=== PATIENT | female | born 1980 | race Hispanic/Latino ===

== ENCOUNTER 2021-11-27 19:44 | Inpatient (IN) | payer OTHER ==
[2021-11-27 20:17] LABS: Hemoglobin 14.6 g/dL (12.0-16.0); Mean Corpuscular HGB CONC 34.6 g/dL (32.0-36.0); Mean Corpuscular Hemoglobin 28.2 pg (27.0-31.0); Mean Corpuscular Volume 81.5 fL (78.0-98.0); Platelet Count 273 thou/uL (130-400); Red Blood Cell (RBC) Count 5.19 mill/uL (4.20-5.40); White Blood Cell (WBC) Count 14.9 thou/uL (4.8-10.8)
[2021-11-27] MEDS ORDERED: Vancomycin 1 GM/200 ML BAG ONE (20:22)
[2021-11-27] MEDS ORDERED: Ibuprofen 200 MG TAB ONE (20:22)
[2021-11-27] MEDS ORDERED: Cefepime 2 GM VIAL ONE (20:22)
[2021-11-27 20:41] LABS: Band 20 % (5-11); Eosinophils 1 % (0-10); Lymphocytes 2 % (21-51); MDiff Complete? YES; Neutrophil 73 % (42-75); Platelet Morphology Comment Appears Adequate; Polychromasia SLIGHT = 2-3 cells (100X) (0-2/hpf); Reactive Lymphocytes 4 % (0-10); Target Cells SLIGHT = 2-5 cells (100X) (0-1/hpf)
[2021-11-27 20:47] LABS: ALT (SGPT) 13 U/L (8-55); AST (SGOT) 27 U/L (5-34); Albumin 4.5 g/dL (3.5-5.0); Alkaline Phosphatase 84 U/L (40-110); Anion Gap 16 mmol/L (10-20); BUN (Urea Nitrogen) 9 mg/dL (7.0-18.7); Bilirubin, Total 0.8 mg/dL (0.2-1.2); Calc. Creatinine Clearance 0 mL/min (70-130); Calcium 9.4 mg/dL (7.8-10.44); Carbon Dioxide 25 mmol/L (22-29); Chloride 101 mmol/L (98-107); Estimated GFR 118; Globulin 3.8 g/dL (2.4-3.5); Glucose 145 mg/dL (70-105); Potassium 4.6 mmol/L (3.5-5.1); Protein, Total 8.3 g/dL (6.0-8.3); Sodium 137 mmol/L (136-145)
[2021-11-27 22:12] LABS: Bacteria/HPF 4+ HPF (None Seen); Bilirubin Negative (Negative); Blood, Urine Negative (Negative); Clarity Turbid (Clear); Glucose, Urine (Dipstick) Normal (Negative); Ketone, Urine Trace mg/dL (Negative); Leukocyte 500 Leu/uL (Negative); Nitrite 1+ (Negative); Protein, Urine (Dipstick) Negative (Neg-Trace); RBC/HPF 0-3 HPF (0-3); Specific Gravity, Urine 1.006 (1.002-1.036); Squamous Epithelial None Seen HPF (0-3); Urobilinogen Normal mg/dL (Less than 2)
[2021-11-27 22:58] LABS: SARS-CoV-2 NAA Rapid Test DETECTED (NotDetected)
[2021-11-27] MEDS: Lactated Ringer's 1,000 ML IV SCH (23:39)
[2021-11-27] MEDS ORDERED: Melatonin 3 MG TAB PO PRN (23:59)
[2021-11-28] MEDS: Ibuprofen 200 MG TAB PO SCH ×3 (00:39→09:32)
[2021-11-28] MEDS: Acetaminophen 325 MG TAB PO SCH ×3 (00:39→08:59)
[2021-11-28 02:00] VITALS: BMI 16.5
[2021-11-28 05:04] LABS: Anion Gap 10 mmol/L (10-20); BUN (Urea Nitrogen) 9 mg/dL (7.0-18.7); Calc. Creatinine Clearance 89 mL/min (70-130); Calcium 7.9 mg/dL (7.8-10.44); Carbon Dioxide 23 mmol/L (22-29); Chloride 103 mmol/L (98-107); Estimated GFR 118; Glucose 227 mg/dL (70-105); Potassium 2.6 mmol/L (3.5-5.1); Sodium 133 mmol/L (136-145)
[2021-11-28 05:21] LABS: Band 29 % (5-11); Hemoglobin 11.7 g/dL (12.0-16.0); Lymphocytes 3 % (21-51); MDiff Complete? YES; Mean Corpuscular HGB CONC 34.6 g/dL (32.0-36.0); Mean Corpuscular Hemoglobin 28.3 pg (27.0-31.0); Mean Corpuscular Volume 81.7 fL (78.0-98.0); Mean Platelet Volume 8.3 fL (7.4-10.4); Metamyelocyte 6 % (0-0); Monocytes 1 % (0-10); Neutrophil 61 % (42-75); Platelet Count 192 thou/uL (130-400); Platelet Morphology Comment Appears Adequate; RBC Morphology Normal; Red Blood Cell (RBC) Count 4.15 mill/uL (4.20-5.40); White Blood Cell (WBC) Count 23.1 thou/uL (4.8-10.8)
[2021-11-28] MEDS ORDERED: Potassium Chloride 20 MEQ TAB PO SCH ×2 (05:45→06:00)
[2021-11-28] MEDS ORDERED: Potassium Chloride 20 MEQ in Premix Bag 1 BAG IVPB SCH (06:00)
[2021-11-28 07:56] LABS: Anion Gap 15 mmol/L (10-20); BUN (Urea Nitrogen) 8 mg/dL (7.0-18.7); Calc. Creatinine Clearance 87 mL/min (70-130); Calcium 8.2 mg/dL (7.8-10.44); Carbon Dioxide 19 mmol/L (22-29); Chloride 101 mmol/L (98-107); Estimated GFR 118; Glucose 189 mg/dL (70-105); Magnesium 1.3 mg/dL (1.6-2.6); Potassium 3.6 mmol/L (3.5-5.1); Sodium 131 mmol/L (136-145)
[2021-11-28] MEDS ORDERED: Cefepime 2 GM in Sodium Chloride 0.9% 100 ML IVPB SCH (08:00)
[2021-11-28] MEDS ORDERED: Magnesium 2 GM/50 ML(in water) 2 GM in Premix Bag 1 BAG IVPB SCH (08:30)
[2021-11-28] MEDS: Enoxaparin Sodium 40 MG/0.4 ML SYRINGE SC SCH (08:59)
[2021-11-28] MEDS: Multivit, Therapeutic 1 TAB PO SCH (09:00)
[2021-11-28] MEDS: Famotidine 20 MG TAB PO SCH ×2 (09:01→20:23)
[2021-11-28] MEDS: Lactated Ringer's 1,000 ML IV SCH ×2 (09:35→18:02)
[2021-11-28 09:48] LABS: Hemoglobin A1c 4.7 % (4.0-6.0)
[2021-11-28] MEDS ORDERED: Acetaminophen 325 MG TAB PO PRN (13:00)
[2021-11-28] MEDS ORDERED: Ibuprofen 200 MG TAB PO PRN (14:00)
[2021-11-28 15:23] LABS: Free T4 (Free Thyroxine) 1.23 ng/dL (0.70-1.48)
[2021-11-28] MEDS: Cefepime 2 GM in Sodium Chloride 0.9% 100 ML IVPB SCH (20:23)
[2021-11-29] MEDS: Lactated Ringer's 1,000 ML IV SCH (04:05)
[2021-11-29 05:23] LABS: Anion Gap 10 mmol/L (10-20); BUN (Urea Nitrogen) 12 mg/dL (7.0-18.7); Calc. Creatinine Clearance 81 mL/min (70-130); Calcium 8.5 mg/dL (7.8-10.44); Carbon Dioxide 23 mmol/L (22-29); Chloride 109 mmol/L (98-107); Estimated GFR 116; Glucose 96 mg/dL (70-105); Potassium 4.2 mmol/L (3.5-5.1); Sodium 138 mmol/L (136-145)
[2021-11-29 05:50] LABS: Band 35 % (5-11); Hemoglobin 11.6 g/dL (12.0-16.0); Lymphocytes 4 % (21-51); MDiff Complete? YES; Mean Corpuscular HGB CONC 34.9 g/dL (32.0-36.0); Mean Corpuscular Volume 83.2 fL (78.0-98.0); Mean Platelet Volume 8.6 fL (7.4-10.4); Metamyelocyte 3 % (0-0); Monocytes 2 % (0-10); Neutrophil 56 % (42-75); Platelet Count 179 thou/uL (130-400); Platelet Morphology Comment Appears Adequate; RBC Distribution Width 13.3 % (11.5-14.5); Toxic Granulation SLIGHT; White Blood Cell (WBC) Count 29.6 thou/uL (4.8-10.8)
[2021-11-29 08:10] LABS: Magnesium 2.1 mg/dL (1.6-2.6)
[2021-11-29] MEDS: Multivit, Therapeutic 1 TAB PO SCH (09:11)
[2021-11-29] MEDS: Cefepime 2 GM in Sodium Chloride 0.9% 100 ML IVPB SCH ×2 (09:11→21:19)
[2021-11-29] MEDS: Famotidine 20 MG TAB PO SCH ×2 (09:11→21:19)
[2021-11-29] MEDS: Enoxaparin Sodium 40 MG/0.4 ML SYRINGE SC SCH (09:11)
[2021-11-29] MEDS ORDERED: Docusate 100 MG CAP PO PRN (12:31)
[2021-11-29] MEDS ORDERED: Polyethylene Glycol 3350 17 GM Packet PO PRN (12:31)
[2021-11-29] MEDS ORDERED: Cefepime 2 GM in Sodium Chloride 0.9% 100 ML IVPB SCH (17:00)
[2021-11-29] MEDS ORDERED: cefTRIAXone\\ROCEPHIN 2 GM in Sodium Chloride 0.9% 100 ML IVPB SCH (21:00)
[2021-11-29] MEDS ORDERED: cefTRIAXone\\ROCEPHIN 1 GM in Sodium Chloride 0.9% 100 ML IVPB SCH (21:00)
[2021-11-30 05:35] LABS: Anion Gap 10 mmol/L (10-20); BUN (Urea Nitrogen) 13 mg/dL (7.0-18.7); Calc. Creatinine Clearance 92 mL/min (70-130); Calcium 8.5 mg/dL (7.8-10.44); Carbon Dioxide 25 mmol/L (22-29); Chloride 105 mmol/L (98-107); Estimated GFR 119; Glucose 104 mg/dL (70-105); Potassium 3.9 mmol/L (3.5-5.1); Sodium 136 mmol/L (136-145)
[2021-11-30 05:52] LABS: Band 19 % (5-11); Hemoglobin 11.6 g/dL (12.0-16.0); Lymphocytes 10 % (21-51); MDiff Complete? YES; Mean Corpuscular HGB CONC 34.9 g/dL (32.0-36.0); Mean Corpuscular Hemoglobin 28.8 pg (27.0-31.0); Mean Corpuscular Volume 82.5 fL (78.0-98.0); Mean Platelet Volume 8.9 fL (7.4-10.4); Monocytes 1 % (0-10); Neutrophil 70 % (42-75); Platelet Count 191 thou/uL (130-400); RBC Distribution Width 13.4 % (11.5-14.5); Red Blood Cell (RBC) Count 4.04 mill/uL (4.20-5.40); White Blood Cell (WBC) Count 26.7 thou/uL (4.8-10.8)
[2021-11-30] MEDS: Cefepime 2 GM in Sodium Chloride 0.9% 100 ML IVPB SCH ×2 (08:47→21:14)
[2021-11-30] MEDS: Famotidine 20 MG TAB PO SCH ×2 (08:48→21:15)
[2021-11-30] MEDS: Multivit, Therapeutic 1 TAB PO SCH (08:48)
[2021-11-30] MEDS: Enoxaparin Sodium 40 MG/0.4 ML SYRINGE SC SCH (08:48)
[2021-12-01 04:37] LABS: #Basophils 0.1 thou/uL (0.0-0.2); #Eosinphils 0.3 thou/uL (0.0-0.7); #Monocytes 0.9 thou/uL (0.11-0.59); #Neutrophils 10.5 thou/uL (1.40-6.50); %Basophils 0.4 % (0.0-1.0); %Eosinophils 2.3 % (0.0-10.0); %Lymphocytes 14.6 % (21.0-51.0); %Monocytes 6.8 % (0.0-10.0); %Neutrophils 75.9 % (42.0-75.0); Hemoglobin 11.2 g/dL (12.0-16.0); Mean Corpuscular HGB CONC 34.9 g/dL (32.0-36.0); Mean Corpuscular Hemoglobin 28.5 pg (27.0-31.0); Mean Corpuscular Volume 81.8 fL (78.0-98.0); Mean Platelet Volume 8.9 fL (7.4-10.4); Platelet Count 184 thou/uL (130-400); RBC Distribution Width 13.4 % (11.5-14.5); Red Blood Cell (RBC) Count 3.93 mill/uL (4.20-5.40); White Blood Cell (WBC) Count 13.9 thou/uL (4.8-10.8)
[2021-12-01 04:55] LABS: Anion Gap 12 mmol/L (10-20); BUN (Urea Nitrogen) 9 mg/dL (7.0-18.7); Calc. Creatinine Clearance 90 mL/min (70-130); Calcium 8.3 mg/dL (7.8-10.44); Carbon Dioxide 26 mmol/L (22-29); Chloride 103 mmol/L (98-107); Estimated GFR 119; Glucose 107 mg/dL (70-105); Potassium 3.5 mmol/L (3.5-5.1); Sodium 137 mmol/L (136-145)
[2021-12-01] MEDS ORDERED: Enoxaparin Sodium 30 MG/0.3 ML SYRINGE SC SCH (09:00)
[2021-12-01] MEDS: Multivit, Therapeutic 1 TAB PO SCH (09:30)
[2021-12-01] MEDS: Famotidine 20 MG TAB PO SCH (09:30)
[2021-12-01] MEDS: Cefepime 2 GM in Sodium Chloride 0.9% 100 ML IVPB SCH (09:30)
[2021-12-01 12:12] VITALS: BP 119/72; TEMP 98.1
== END 2021-12-01 13:34 | disposition home or self-care (01) | DRG 698 ==
LOC: ERS 19:44 → 2NO 21:27
PROVIDERS: ADMIT Family Medicine; ATTEND Family Medicine
PROC: 8E0ZXY6 Isolation (ICD-10-PCS; principal; 2021-11-27)
DX: T83.518A Infection and inflammatory reaction due to other urinary catheter, initial encounter (principal); A41.51 Sepsis due to Escherichia coli [E. coli]; U07.1 COVID-19; J98.11 Atelectasis; N39.0 Urinary tract infection, site not specified; E87.6 Hypokalemia; R73.9 Hyperglycemia, unspecified; Q05.9 Spina bifida, unspecified; Z98.890 Other specified postprocedural states; Z98.2 Presence of cerebrospinal fluid drainage device; Z79.899 Other long term (current) drug therapy; Z83.3 Family history of diabetes mellitus; Z99.3 Dependence on wheelchair
CPT/HCPCS: 36415; 71045; 80048; 80053; 81003; 81015; 83036; 83605; 83735; 84145; 84439; 84443; 84481; 85025; 87040; 87077; 87086; 87149; 87186; 87205; 93005; 96374; 96375; J0692; J1650; J3370; J3475; J3480; J3490; J7120

== ENCOUNTER 2023-09-21 14:55 | Outpatient (CLI) | payer OTHER ==
[~2023-09-21 14:55] MED LIST: Iopamidol 370 76% 100 ML VIAL ONE
== END 2023-09-21 14:56 | disposition home or self-care (01) ==
LOC: CT 14:55
PROVIDERS: ATTEND Urology
DX: N20.0 Calculus of kidney (principal); N31.9 Neuromuscular dysfunction of bladder, unspecified; N28.1 Cyst of kidney, acquired; D25.9 Leiomyoma of uterus, unspecified; N28.89 Other specified disorders of kidney and ureter; M62.89 Other specified disorders of muscle; Z96.0 Presence of urogenital implants
CPT/HCPCS: 74178; Q9967

== ENCOUNTER 2024-01-02 09:19 | Outpatient (CLI) | payer OTHER ==
[2024-01-02 12:28] LABS: #Basophils Less than 0.03 10x3/uL (0.0-0.2); %Basophils 0.3 % (0.0-1.0); %Eosinophils 0.5 % (0.0-10.0); %Lymphocytes 27.5 % (21.0-51.0); %Monocytes 9.2 % (0.0-10.0); %Neutrophils 62.3 % (42.0-75.0); Hematocrit 38.5 % (36.0-47.0); Hemoglobin 13.7 g/dL (12.0-16.0); Mean Corpuscular HGB CONC 35.6 g/dL (32.0-36.0); Mean Corpuscular Hemoglobin 27.8 pg (27.0-31.0); Mean Corpuscular Volume 78.1 fL (78.0-98.0); Mean Platelet Volume 10.6 fL (7.4-10.4); Platelet Count 283 10x3/uL (130-400); RBC Distribution Width 14.1 % (11.5-14.5); Red Blood Cell (RBC) Count 4.93 mill/uL (4.20-5.40)
[2024-01-02 12:41] LABS: BHCG - Serum Negative (NEGATIVE); Pregs Control Background? CLEAR/WHITE (CLR/WHITE); Pregs Control Bar Appear? YES (CONTROL BAR)
[2024-01-02 12:46] LABS: PTT 34.2 sec (22.9-36.1); Prothrombin Time 13.6 sec (12.0-14.7)
[2024-01-02 12:54] LABS: Anion Gap 13 mmol/L (10-20); BUN (Urea Nitrogen) 5 mg/dL (7.0-18.7); Calc. Creatinine Clearance 0 mL/min (70-130); Calcium 9.1 mg/dL (7.8-10.44); Carbon Dioxide 26 mmol/L (22-29); Chloride 101 mmol/L (98-107); Estimated GFR 125; Glucose 81 mg/dL (70-105); Sodium 136 mmol/L (136-145)
== END 2024-01-02 09:20 | disposition home or self-care (01) ==
LOC: LABBT 09:19
PROVIDERS: ATTEND Urology
DX: Z01.818 Encounter for other preprocedural examination (principal); N31.9 Neuromuscular dysfunction of bladder, unspecified; N20.0 Calculus of kidney; N28.1 Cyst of kidney, acquired; Z97.8 Presence of other specified devices
CPT/HCPCS: 80048; 84703; 85025; 85610; 85730; 87077; 87086; 93005; 93010

== ENCOUNTER 2024-02-20 07:23 | Day surgery (SDC) | payer OTHER ==
[2024-01-02 09:31] VITALS: BMI 17.6
[2024-02-20] MEDS ORDERED: Ampicillin 2 GM in Sodium Chloride 0.9% 100 ML IVPB SCH (10:15)
[2024-02-20] MEDS ORDERED: Sodium Chloride 0.9% 100 ML ONE (10:25)
[2024-02-20] MEDS ORDERED: Ampicillin 2 GM VIAL ONE (10:25)
[2024-02-20 10:45] LABS: #Basophils Less than 0.03 10x3/uL (0.0-0.2); #Eosinophils Less than 0.03 10x3/uL (0.0-0.7); %Basophils 0.2 % (0.0-1.0); %Eosinophils 0.2 % (0.0-10.0); %Lymphocytes 19.2 % (21.0-51.0); %Monocytes 5.5 % (0.0-10.0); %Neutrophils 74.7 % (42.0-75.0); Hematocrit 38.4 % (36.0-47.0); Hemoglobin 14.1 g/dL (12.0-16.0); Mean Corpuscular HGB CONC 36.7 g/dL (32.0-36.0); Mean Corpuscular Hemoglobin 27.9 pg (27.0-31.0); Mean Corpuscular Volume 75.9 fL (78.0-98.0); Mean Platelet Volume 10.3 fL (7.4-10.4); Platelet Count 253 10x3/uL (130-400); RBC Distribution Width 13.9 % (11.5-14.5); Red Blood Cell (RBC) Count 5.06 mill/uL (4.20-5.40)
[2024-02-20] MEDS ORDERED: PROPOFOL 20 ML ONE (10:51)
[2024-02-20] MEDS ORDERED: Rocuronium Bromide 10 MG/ML (10ML VIAL) ONE (10:51)
[2024-02-20] MEDS ORDERED: Lidocaine 2% PF 5 ML VIAL ONE (10:51)
[2024-02-20 11:02] LABS: BHCG - Serum Negative (NEGATIVE); Pregs Control Background? CLEAR/WHITE (CLR/WHITE); Pregs Control Bar Appear? YES (CONTROL BAR)
[2024-02-20 11:12] LABS: Anion Gap 17 mmol/L (10-20); BUN (Urea Nitrogen) Less than 4 mg/dL (7.0-18.7); Calc. Creatinine Clearance 110 mL/min (70-130); Calcium 9.1 mg/dL (7.8-10.44); Carbon Dioxide 21 mmol/L (22-29); Chloride 108 mmol/L (98-107); Estimated GFR 122; Glucose 92 mg/dL (70-105); Potassium 4.6 mmol/L (3.5-5.1); Sodium 141 mmol/L (136-145)
[2024-02-20] MEDS ORDERED: LevoFLOXacin 750 mg/D5W 750 MG in Premix 1 BAG IVPB SCH (11:15)
[2024-02-20 11:18] LABS: PTT 29.6 sec (22.9-36.1); Prothrombin Time 13.1 sec (12.0-14.7)
[2024-02-20] MEDS ORDERED: fentaNYL PF 100 MCG/2 ML SYRINGE ONE (11:20)
[2024-02-20] MEDS ORDERED: Iopamidol 30 ML ONE (11:20)
[2024-02-20] MEDS ORDERED: Dexamethasone 4 mg/ml Vial ONE (11:54)
[2024-02-20] MEDS ORDERED: Ondansetron PF 4 MG/2 ML Vial ONE (11:54)
[2024-02-20] MEDS ORDERED: SUGAMMADEX SODIUM 200 MG/2 ML VIAL ONE (11:55)
[2024-02-20] MEDS ORDERED: PHENYLEPHRINE-NS 100 MCG/ML 10 ML SYRINGE ONE (12:01)
[2024-02-20] MEDS ORDERED: ePHEDrine Sulfate 50 MG/10 ML VIAL ONE (12:18)
[2024-02-20] MEDS ORDERED: Gentamicin 80 MG/2 ML VIAL ONE (12:59)
[2024-02-20] MEDS ORDERED: Bacitracin 1 PK ONE (13:05)
[2024-02-20] MEDS ORDERED: Phenazopyridine HCl 100 MG TAB ONE (14:01)
== END 2024-02-20 14:40 | disposition home or self-care (01) ==
LOC: SDC 07:23
PROVIDERS: ATTEND Urology
PROC: 0TBD8ZX Excision of Urethra, Via Natural or Artificial Opening Endoscopic, Diagnostic (ICD-10-PCS; principal; 2024-02-20)
DX: N31.9 Neuromuscular dysfunction of bladder, unspecified (principal); N20.0 Calculus of kidney; D30.4 Benign neoplasm of urethra; M40.50 Lordosis, unspecified, site unspecified; E78.00 Pure hypercholesterolemia, unspecified; Q05.9 Spina bifida, unspecified; Z79.2 Long term (current) use of antibiotics; Z79.899 Other long term (current) drug therapy
CPT/HCPCS: 74018; 74420; 80048; 84703; 85025; 85610; 85730; 88305; C1747; C1769; J0290; J1100; J1580; J1956; J2405; J2704; Q9967